=== PATIENT | female | born 1955 | race Caucasian/White ===

== ENCOUNTER 2023-03-17 09:33 | Outpatient (CLI) | payer MEDICARE, SELFPAY ==
--- NOTE | ~2023-03-17 | MR_ITS ---
MRI of the left knee Clinical history: Pain Technique: Coronal proton density and proton density-weighted images, sagittal proton-density and T2 fat-sat images, and axial proton-density fat-saturated images were acquired. Findings: Anterior and posterior cruciate ligaments are intact. Medial collateral ligament and the la teral collateral ligament complex are intact. Popliteus tendon is intact. There is complex tearing and maceration of the anterior horn of the medial meniscus, tear extending i nto the body segment. There is complex tearing and maceration of the anterior horn and body of medial meniscus. 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 There a re focal areas of grade IV chondromalacia of the lateral femoral condyle, with more extensive grade I V chondromalacia of the posterior half the lateral tibial plateau. There is extensive high-grade ronda dromalacia of the patellofemoral compartment, especially lateral patellar facet and patellar apex. Tr icompartmental osteophytes are present. Extensor mechanism is intact. Small to moderate joint effusion is present. Minimal Roa's cyst prese nt. Impression: Complex tearing of the anterior horn and body of the medial meniscus. Complex tearing of the anterior horn of the medial meniscus, probably extending to the body segment. Moderate to advanced tricompartmental osteoarthritis, as detailed above. Small to moderate joint effusion with minimal Roa's cyst. Reviewed, dictated and finalized at location . Impression: Complex tearing of the anterior horn and body of the medial meniscus. Complex tearing of the anterior horn of the medial meniscus, probably extending to the body segment. Moderate to advanced tricompartmental osteoarthritis, as detailed above. Small to moderate joint effusion with minimal Roa's cyst.
== END 2023-03-17 09:34 | disposition home or self-care (01) ==
LOC: CHSIMG 09:37
PROVIDERS: PCP Family Medicine; Visit Provider Family Medicine
DX: S89.92XA Unspecified injury of left lower leg, initial encounter (principal); S83.232A Complex tear of medial meniscus, current injury, left knee, initial encounter; M17.12 Unilateral primary osteoarthritis, left knee; M25.462 Effusion, left knee; M71.22 Synovial cyst of popliteal space [Baker], left knee
CPT/HCPCS: 73721

== ENCOUNTER 2023-03-30 09:10 | Outpatient (RCR) | payer MEDICARE, SELFPAY ==
--- NOTE | 2023-03-30 13:16 | OPREHPOC ---
Outpatient Therapy Plan of Care This is a Multidisciplinary Plan of Care that may contain components documented by all disciplines (PT, OT, and ST.) PT Problem 1 PT Problem #1 Knowledge Deficit PT Goal 1 Goal 1. Patient to demonstrate independence with HEP to improve progress made in PT. Target Visit 6 PT Problem 2 PT Problem #2 Impaired Strength PT Goal 1 Goal 1. Patient to improve L knee flexion/extension strength to 4/5 or more to improve ability to climb stairs. 2. Patient to improve L hip flexion strength to 4- /5 or greater to improve her ability to stand up from chair. Target Visit 12 PT Problem 3 PT Problem #3 Impaired Range of Motion PT Goal 1 Goal 1. 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 2. Patient to improve L knee active extension to lacking no more than 2 degrees to improve patient' s gait mechanics. 3. Patient to improve L hip active flexion to 75 degrees to improve ability to lift L leg onto couch. Target Visit 12 PT Problem 4 PT Problem #4 Impaired Gait PT Goal 1 Goal 1. Patient to walk 600 feet with LRAD during 6 minute walk test to improve ability to ambulate in grocery store. 2. Patient to walk with no limp to allow for better gait mechanics. Target Visit 12 PT Problem 5 PT Problem #5 Impaired Functional Mobil PT Goal 1 Goal 1. 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 2. Patient to perform sit to stand from standard chair with no increase in pain to improve ability to transfer in home. Target Visit 12
--- NOTE | 2023-03-30 13:16 | PTOPEVAL1 ---
Assessment and note entered by JT File, PT Evaluation Information Assessment Status Evaluation Diagnosis L knee OA, medial mensicus tear Onset 03/28/23 Subjective Information Patient reports she has had problems years ago in the L knee starting in 2009, since then it had gotten better until she hit it with with a truck door in November of 2022. She states in January while walking down the stairs to take her dog out, she felt a pop in the L knee. In February, she slipped in the shower which increased the knee pain further. She notes that she has been walking with a cane since January of this year once the pain has increased, stating this helps take pressure off the leg. She notes she visited the doctor, and was given pain medications to treat the pain. She had an x-ray and MRI a few weeks ago, showing a tear of the medial mensicus, OA, and joint effusion. Patient reports difficulty with moving sit to stand, climbing stairs, getting in/out car, and walking. She states that following an injection in the knee the pain has improved somewhat. Reported Pain Level Pain Score 3: Self Report Assessment PT Clinical Summary Mrs. Brunner is a 68 y/o female who presents to skilled PT to address OA in L knee. She presents with impairments in L LE strength, ROM, and flexibility. 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 Patient displays difficulty with walking, stair climbing, and transfer making it difficult to maintain her typically active lifestyle. Appropriate to continue skilled PT to address pain, ROM, strength , and gait deficits to improve patient's quality of life. Plan of Care Interventions Electrical Stimulation,Gait Training,Hot Pack/Cold Pack,Manual Therapy,Neuro Re-education,Patient/ Caregiver Educati,Therapeutic Activities, Therapeutic Exercise PT Services Indicated Yes Treatment Frequency and 3x/week for 12 visits Duration These treatments will address the objective and functional deficits as defined above. The patient will be advanced safely and appropriately in order for the patient to progress towards his/her prior level of function. Additional exercises will be introduced and as well as a comprehensive home exercise program upon discharge, if needed, ?to ensure carryover of functional gains achieved in the clinic. This treatmilagros
--- NOTE | 2023-04-24 07:58 | OPREHPOC ---
Outpatient Therapy Plan of Care This is a Multidisciplinary Plan of Care that may contain components documented by all disciplines (PT, OT, and ST.) PT Problem 1 PT Problem #1 Knowledge Deficit PT Goal 1 Goal 1. Patient to demonstrate independence with HEP to improve progress made in PT. Target Visit 6 PT Problem 2 PT Problem #2 Impaired Strength PT Goal 1 Goal 1. Patient to improve L knee flexion/extension strength to 4/5 or more to improve ability to climb stairs. 2. Patient to improve L hip flexion strength to 4- /5 or greater to improve her ability to stand up from chair. Target Visit 12 Comment continue PT Problem 3 PT Problem #3 Impaired Range of Motion PT Goal 1 Goal 1. Patient to achieve 100 degrees of active L knee flexion to increase ability to squat to floor to burr picker items. 2. Patient to improve L knee active extension to lacking no more than 2 degrees to improve patient' s gait mechanics. 3. Patient to improve L hip active flexion to 75 degrees to improve ability to lift L leg onto couch. Target Visit 12 Comment continue PT Problem 4 PT Problem #4 Impaired Gait PT Goal 1 Goal 1. Patient to walk 600 feet with LRAD during 6 minute walk test to improve ability to ambulate in grocery store. 2. Patient to walk with no limp to allow for better gait mechanics. Target Visit 12 Comment continue PT Problem 5 PT Problem #5 Impaired Functional Mobil PT Goal 1 Goal 1. 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 2. Patient to perform sit to stand from standard chair with no increase in pain to improve ability to transfer in home. Target Visit 12 Comment continue
== END 2023-04-23 19:00 | disposition still patient (30) ==
LOC: CHSPT 09:10
PROVIDERS: PCP Family Medicine; Visit Provider Orthopaedic Surgery
DX: M17.32 Unilateral post-traumatic osteoarthritis, left knee (principal)
CPT/HCPCS: 97014; 97016; 97110; 97140; 97150; 97161; G0283

== ENCOUNTER 2023-05-25 14:19 | Outpatient (RCR) | payer MEDICARE, SELFPAY ==
--- NOTE | 2023-05-25 15:52 | OPREHPOC ---
Outpatient Therapy Plan of Care This is a Multidisciplinary Plan of Care that may contain components documented by all disciplines (PT, OT, and ST.) PT Problem 1 PT Problem #1 Knowledge Deficit PT Goal 1 Goal 1. Patient to demonstrate independence with HEP to improve progress made in PT. Target Visit 6 PT Problem 2 PT Problem #2 Impaired Strength PT Goal 1 Goal 1. Patient to improve L knee flexion/extension strength to 4/5 or more to improve ability to climb stairs. 2. Patient to improve L hip flexion strength to 4- /5 or greater to improve her ability to stand up from chair. Target Visit 12 Comment . Comment continue PT Problem 3 PT Problem #3 Impaired Range of Motion PT Goal 1 Goal 1. Patient to achieve 100 degrees of active L knee flexion to increase ability to squat to floor to crop picker items. 2. Patient to improve L knee active extension to lacking no more than 2 degrees to improve patient' s gait mechanics. Target Visit 12 Comment . Comment continue PT Problem 4 PT Problem #4 Impaired Gait PT Goal 1 Goal 1. Patient to walk 600 feet with LRAD during 6 minute walk test to improve ability to ambulate in grocery store. 2. Patient to walk with no limp to allow for better gait mechanics. Target Visit 12 Comment . Comment continue PT Problem 5 PT Problem #5 Impaired Functional Mobil PT Goal 1 Goal 1. 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 2. Patient to perform sit to stand from standard chair with no increase in pain to improve ability to transfer in home. Target Visit 12 Comment . Comment continue
--- NOTE | 2023-05-25 15:52 | PTOPREEVAL ---
Assessment and note entered by Gail Sargent DPT Evaluation Information Assessment Status Evaluation Diagnosis L knee OA, medial mensicus tear Onset 03/28/23 Subjective Information Patient reports she underwent L TKA on 05/21/23. She reports she was discharged on 05/23/23. She reports she did do PT while in the hospital. She reports she has been having diffiulty sleeping, walking, ambulating and standing for house hold tasks. She reports she has had L calf pain and MD is aware but has not done a doppler. She reports she returns to the MD on 06/05/23. Reported Pain Level Pain Score 2: Self Report Pain Score 4: Self Report Assessment PT Clinical Summary Mrs. Brunner is a 68 year old female who presents to PT s/p L TKA. Patient demonstrates decreased L knee ROM, decreased L knee strength, and impaired gait limiting her ability to get into and out of the car, ambulate prolonged distances and complete house hold tasks. Patient would benefit from skilled PT to address impairments and return to PLOF. Plan of Care Interventions Therapeutic Exercise,Patient/Caregiver Educati, Manual Therapy,Neuro Re-education,Therapeutic Activities,Hot Pack/Cold Pack,Electrical Stimulation,Gait Training PT Services Indicated Yes Treatment Frequency and 3x weekly for 12 visits Duration These treatments will address the objective and functional deficits as defined above. The patient will be advanced safely and appropriately in order for the patient to progress towards his/her prior level of function. Additional exercises will be introduced and as well as a comprehensive home exercise program upon discharge, if needed, ?to ensure carryover of functional gains achieved in the clinic. This treatment plan has been reviewed and agreement upon by the patient.
--- NOTE | 2023-06-25 14:55 | OPREHPOC ---
Outpatient Therapy Plan of Care This is a Multidisciplinary Plan of Care that may contain components documented by all disciplines (PT, OT, and ST.) PT Problem 1 PT Problem #1 Knowledge Deficit PT Goal 1 Goal 1. Patient to demonstrate independence with HEP to improve progress made in PT. Target Visit 20 PT Problem 2 PT Problem #2 Impaired Strength PT Goal 1 Goal 1. Patient to improve L knee flexion/extension strength to 4/5 or more to improve ability to climb stairs. 2. Patient to improve L hip flexion strength to 4- /5 or greater to improve her ability to stand up from chair. Target Visit 20 Comment 1 met PT Problem 3 PT Problem #3 Impaired Range of Motion PT Goal 1 Goal 1. 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 2. Patient to improve L knee active extension to lacking no more than 2 degrees to improve patient' s gait mechanics. Target Visit 20 Comment upgraded PT Problem 4 PT Problem #4 Impaired Gait PT Goal 1 Goal 1. Patient to walk 800 feet with LRAD during 6 minute walk test to improve ability to ambulate in grocery store. 2. Patient to walk with no limp to allow for better gait mechanics. Target Visit 20 Comment continue, upgraded PT Problem 5 PT Problem #5 Impaired Functional Mobil PT Goal 1 Goal 1. 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 2. Patient to perform sit to stand from standard chair with no increase in pain to improve ability to transfer in home. Target Visit 20
--- NOTE | 2023-06-25 14:56 | PTOPREEVAL ---
Assessment and note entered by Gail Sargent DPT Evaluation Information Assessment Status Re-evaluation Diagnosis L knee OA, medial mensicus tear Onset 03/28/23 Subjective Information Patient reports she has been walking with a cane in the community and no AD at home. She reports she has been able to do stairs at home but would like to improve ability to step into bath tub. She reports shoulder continues to be stiff. Reported Pain Level Pain Score 2: Self Report Assessment PT Clinical Summary Mrs. Brunner has been seen for 12 visits since L TKA. She is progressing well with improved L knee ROM and strength. She has been able to ambulate with AD and has reported ability to navigate stairs. She continues to lack full ROM of the L knee. Goals have been upgraded to reflect positive progress. Patient would benefit from continued skilled PT to address remaining impairments and return to PLOF. Plan of Care Interventions Therapeutic Exercise,Patient/Caregiver Educati, Manual Therapy,Neuro Re-education,Therapeutic Activities,Hot Pack/Cold Pack,Electrical Stimulation,Gait Training PT Services Indicated Yes Treatment Frequency and continue 2x weekly for 8 visits Duration These treatments will address the objective and functional deficits as defined above. The patient will be advanced safely and appropriately in order for the patient to progress towards his/her prior level of function. Additional exercises will be introduced and as well as a comprehensive home exercise program upon discharge, if needed, ?to ensure carryover of functional gains achieved in the clinic. This treatment plan has been reviewed and agreement upon by the patient.
--- NOTE | 2023-07-25 14:50 | OPREHPOC ---
Outpatient Therapy Plan of Care This is a Multidisciplinary Plan of Care that may contain components documented by all disciplines (PT, OT, and ST.) PT Problem 1 PT Problem #1 Knowledge Deficit PT Goal 1 Goal 1. Patient to demonstrate independence with HEP to improve progress made in PT. Target Visit 28 PT Problem 2 PT Problem #2 Impaired Strength PT Goal 1 Goal 1. Patient to improve L knee flexion/extension strength to 4/5 or more to improve ability to climb stairs. 2. Patient to improve L hip flexion strength to 4- /5 or greater to improve her ability to stand up from chair. Target Visit 28 Progress Partially Met Comment 1 met PT Problem 3 PT Problem #3 Impaired Range of Motion PT Goal 1 Goal 1. 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 2. Patient to improve L knee active extension to lacking no more than 2 degrees to improve patient' s gait mechanics. Target Visit 28 Comment continue PT Problem 4 PT Problem #4 Impaired Gait PT Goal 1 Goal 1. Patient to walk 800 feet with LRAD during 6 minute walk test to improve ability to ambulate in grocery store. 2. Patient to walk with no limp to allow for better gait mechanics. Target Visit 28 Progress Partially Met Comment 1 met, continue PT Problem 5 PT Problem #5 Impaired Functional Mobil PT Goal 1 Goal 1. 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 2. Patient to perform sit to stand from standard chair with no increase in pain to improve ability to transfer in home. Target Visit 28 Progress Partially Met
--- NOTE | 2023-07-25 14:50 | PTOPREEVAL ---
Assessment and note entered by Gail Sargent DPT Evaluation Information Assessment Status Re-evaluation Diagnosis L knee OA, medial mensicus tear Onset 03/28/23 Subjective Information Patient reports she is feeling better. She reports she is still having difficulty bending the L knee . She reports she has been able to return to most daily activities but reports fatigue with stair navigation and ambulating prolonged distances. She reports she occasionally has difficulty getting into the car. Reported Pain Level Pain Score 3: Self Report Assessment PT Clinical Summary Mrs. Brunner has been seen for 20 visits of skilled PT since L TKA. Patient continues to make progress towards goals and has reported improved house hold function. She continue to lack full L knee flexion ROM limiting her ability to navigate stairs, ambulate prolonged distances and get into and out of the car. She would benefit from continued skilled PT to address remaining impairments and return to PLOF. Plan of Care Interventions Therapeutic Exercise,Patient/Caregiver Educati, Manual Therapy,Neuro Re-education,Therapeutic Activities,Hot Pack/Cold Pack,Electrical Stimulation,Gait Training PT Services Indicated Yes Treatment Frequency and continue 2x weekly for 8 visits Duration These treatments will address the objective and functional deficits as defined above. The patient will be advanced safely and appropriately in order for the patient to progress towards his/her prior level of function. Additional exercises will be introduced and as well as a comprehensive home exercise program upon discharge, if needed, ?to ensure carryover of functional gains achieved in the clinic. This treatment plan has been reviewed and agreement upon by the patient.
--- NOTE | 2023-08-22 14:37 | OPREHPOC ---
Outpatient Therapy Plan of Care This is a Multidisciplinary Plan of Care that may contain components documented by all disciplines (PT, OT, and ST.) PT Problem 1 PT Problem #1 Knowledge Deficit PT Goal 1 Goal 1. Patient to demonstrate independence with HEP to improve progress made in PT. Target Visit 28 Progress Met PT Problem 2 PT Problem #2 Impaired Strength PT Goal 1 Goal 1. Patient to improve L knee flexion/extension strength to 4/5 or more to improve ability to climb stairs. 2. Patient to improve L hip flexion strength to 4- /5 or greater to improve her ability to stand up from chair. Target Visit 28 Progress Met Comment . PT Problem 3 PT Problem #3 Impaired Range of Motion PT Goal 1 Goal 1. Patient to achieve 120 degrees of active L knee flexion to increase ability to squat to floor to leaf size picker items. 2. Patient to improve L knee active extension to lacking no more than 2 degrees to improve patient' s gait mechanics. Target Visit 28 Progress Not Met Comment . PT Problem 4 PT Problem #4 Impaired Gait PT Goal 1 Goal 1. Patient to walk 800 feet with LRAD during 6 minute walk test to improve ability to ambulate in grocery store. met 2. Patient to walk with no limp to allow for better gait mechanics. met Target Visit 28 Progress Met Comment . PT Problem 5 PT Problem #5 Impaired Functional Mobil PT Goal 1 Goal 1. 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 2. Patient to perform sit to stand from standard chair with no increase in pain to improve ability to transfer in home. Target Visit 28 Progress Met
--- NOTE | 2023-08-22 14:39 | PTOPDC ---
Assessment and note entered by JT File, PT Evaluation Information Assessment Status Discharge Diagnosis L knee OA, medial mensicus tear Onset 03/28/23 Subjective Information patient reports she feels good today. she reports it has really gotten better in the last week. she reports the surgeon has released her from follow-ups for the knee. she reports she is ready to DC therapy. Reported Pain Level Pain Score 0: Self Report Assessment PT Clinical Summary mrs. snell presents to skilled PT with no pain in the L knee. she has met all goals for skilled PT this date, except for L knee active rom. she is ambulating without any AD, and traverses stairs with reciprocal pattern. she will be DC'd from skilled PT today, and will continue HEP independent at home. Plan of Care PT Services Indicated Yes
== END 2023-08-22 15:21 | disposition home or self-care (01) ==
LOC: CHSPT 14:19
PROVIDERS: PCP Family Medicine; Visit Provider Orthopaedic Surgery
DX: M17.32 Unilateral post-traumatic osteoarthritis, left knee (principal)
CPT/HCPCS: 97014; 97016; 97110; 97112; 97140; 97150; 97164; 97530; G0283

== ENCOUNTER 2024-09-10 14:21 | Outpatient (RCR) | payer MEDICARE, SELFPAY ==
--- NOTE | 2024-09-10 15:40 | OPREHPOC ---
Outpatient Therapy Plan of Care This is a Multidisciplinary Plan of Care that may contain components documented by all disciplines (PT, OT, and ST.) PT Problem 1 PT Problem #1 Knowledge Deficit PT Goal 1 Goal / Goal Update 1. independent and compliant with HEP Target Visit 6 PT Problem 2 PT Problem #2 Pain PT Goal 1 Goal / Goal Update 1. decrease pain at worst to 3/10 or less in the lower back 2. patient to report no radicular symptoms past the R hip. Target Visit 12 PT Problem 3 PT Problem #3 Impaired Strength PT Goal 1 Goal / Goal Update 1. patient to display 3+/5 or better R hip flex 2. patient to display 4/5 or better R knee strength 3. 4/5 or better R ankle DF Target Visit 12 PT Problem 4 PT Problem #4 Impaired Functional Mobility PT Goal 1 Goal / Goal Update 1. patient to ambulate with normal gait mechanics and no AD 2. patient to ambulate up and down steps with reciprocal mechanics with 1 hand rail hold or less 3. oswestry to display 30% or less functional deficits 4. patient to tolerate standing for 1 hour or more at home to complete home care Target Visit 12
--- NOTE | 2024-09-10 15:40 | PTOPEVAL1 ---
Assessment and note entered by JT File, PT Evaluation Information Assessment Status Evaluation ICD-10 Condition Codes (PT) Pain in low back M54.50,Radiculopathy, lumbar region M54.16 Onset 07/30/24 Subjective Information patient reports her R leg went out from underneath her 3 times and she fell. she reports she had an MRI of the lower back that shows disc problems. she reports she also has pain from the top of the back, into the groin area, then down the front of the thigh to the knee and ankle. she reports she has increased symptoms with walking. she reports she has to walk around her house a lot due to her being in poor health at this time too. she reports she has had a few bouts of burning down the legs where she has had to physically pour water on her legs to get the pain to subside. she reports she has been having symptoms since some time in july. Reported Pain Level Pain Score 5: Self Report Assessment PT Clinical Summary mrs. snell is a 69 yo woman who presents to skilled PT services for evaluation and treatment of lower back pain and lumbar radiculopathy. she presents today with decreased rom, poor gait mechanics, decreased core stability, decreased LE strength, and pain. she displays signs and symptoms consistent with an acute discoid type injury. continued skilled PT is indicated to improve her objective/functional deficits and return to her prior level functional activity performance and quality of life. Plan of Care Interventions Electrical Stimulation,Gait Training,Hot Pack/Cold Pack,Manual Therapy,Mechanical Traction,Neuro Re- education,Patient/Caregiver Education,Therapeutic Activities,Therapeutic Exercise PT Services Indicated Yes Treatment Frequency and 3x weekly for 12 visits Duration These treatments will address the objective and functional deficits as defined above. The patient will be advanced safely and appropriately in order for the patient to progress towards his/her prior level of function. Additional exercises will be introduced and as well as a comprehensive home exercise program upon discharge, if needed, ?to ensure carryover of functional gains achieved in the clinic. This treatment plan has been reviewed and agreement upon by the patient.
--- NOTE | 2024-10-02 14:09 | OPREHPOC ---
Outpatient Therapy Plan of Care This is a Multidisciplinary Plan of Care that may contain components documented by all disciplines (PT, OT, and ST.) PT Problem 1 PT Problem #1 Knowledge Deficit PT Goal 1 Goal / Goal Update 1. independent and compliant with HEP Target Visit 6 Progress Met PT Goal 2 Goal / Goal Update continue to progress PT Problem 2 PT Problem #2 Pain PT Goal 1 Goal / Goal Update 1. decrease pain at worst to 3/10 or less in the lower back -progress 2. patient to report no radicular symptoms past the R hip. -progress Target Visit 12 Progress Partially Met PT Goal 2 Goal / Goal Update continue PT Problem 3 PT Problem #3 Impaired Strength PT Goal 1 Goal / Goal Update 1. patient to display 3+/5 or better R hip flex 2. patient to display 4/5 or better R knee strength 3. 4/5 or better R ankle DF Target Visit 12 Progress Not Met PT Goal 2 Goal / Goal Update continue PT Problem 4 PT Problem #4 Impaired Functional Mobility PT Goal 1 Goal / Goal Update 1. patient to ambulate with normal gait mechanics and no AD -not met 2. patient to ambulate up and down steps with reciprocal mechanics with 1 hand rail hold or less -not met 3. oswestry to display 30% or less functional deficits -not met 4. patient to tolerate standing for 1 hour or more at home to complete home care -met Target Visit 12 Progress Partially Met PT Goal 2 Goal / Goal Update continue
--- NOTE | 2024-10-02 14:09 | PTOPPROG ---
Assessment and note entered by Xenia Asher, PT Evaluation Information Assessment Status Progress ICD-10 Condition Codes (PT) Pain in low back M54.50,Radiculopathy, lumbar region M54.16 Onset 07/30/24 Subjective Information Julia Brunner reports she has constant pain in her right leg except the days she has had traction in PT. She gets relief of pain for 6-8 hours after PT session. She reports pain only goes to the right knee now and does not go to the ankle like it did previously. She is noting that she can move her right leg a little better but she is still having difficulty moving her right leg. She was able to lift her leg enough to get into the shower yesterday but she still struggles with getting into higher vehicles. She did have a fall about a month ago when her right leg didn't move and she fell backward. She also fell approximately 2 weeks ago when she tried to lift her right leg into her daughter's suburban SUV. She fell out of the car that time. She is able to stand long enough to cook and wash dishes again. She has been transferred to a new primary doctor and has not been referred to a specialist. Assessment PT Clinical Summary Julia Brunner has completed 10 skilled PT visits for low back pain and radiculopathy. She is reporting less pain in her leg and back after receiving traction during PT and she notes she is able to lift her right leg a little better and she is able to stand long enough to cook and wash dishes now. She demonstrates mild progress with right LE strength and core strength. She continues to have weakness and decreased mobility however, her symptoms are centralizing and she will continue to benefit from skilled PT. Plan of Care Interventions Electrical Stimulation,Hot Pack/Cold Pack,Manual Therapy,Mechanical Traction,Neuro Re-education, Patient/Caregiver Education,Therapeutic Activities ,Therapeutic Exercise PT Services Indicated Yes Treatment Frequency and Continue per POC for 2 additional visits. Duration These treatments will address the objective and functional deficits as defined above. The patient will be advanced safely and appropriately in order for the patient to progress towards his/her prior level of function. Additional exercises will be introduced and as well as a comprehensive home exercise program upon discharge, if needed, ?to ensure carryover of functional gains achieved in the clinic. This treatment plan has been reviewed and agreement upon by the patient.
--- NOTE | 2024-10-10 11:34 | OPREHPOC ---
Outpatient Therapy Plan of Care This is a Multidisciplinary Plan of Care that may contain components documented by all disciplines (PT, OT, and ST.) PT Problem 1 PT Problem #1 Knowledge Deficit PT Goal 1 Goal / Goal Update 1. independent and compliant with HEP Target Visit 6 Progress Met PT Goal 2 Goal / Goal Update continue to progress PT Problem 2 PT Problem #2 Pain PT Goal 1 Goal / Goal Update 1. decrease pain at worst to 3/10 or less in the lower back -progress 2. patient to report no radicular symptoms past the R hip. -progress Target Visit 18 Progress Not Met PT Goal 2 Goal / Goal Update . PT Problem 3 PT Problem #3 Impaired Strength PT Goal 1 Goal / Goal Update 1. patient to display 3+/5 or better R hip flex. met 2. patient to display 4/5 or better R knee strength 3. 4/5 or better R ankle DF. met Target Visit 18 Progress Partially Met PT Goal 2 Goal / Goal Update . PT Problem 4 PT Problem #4 Impaired Functional Mobility PT Goal 1 Goal / Goal Update 1. patient to ambulate with normal gait mechanics and no AD -not met 2. patient to ambulate up and down steps with reciprocal mechanics with 1 hand rail hold or less -not met 3. oswestry to display 30% or less functional deficits -not met 4. patient to tolerate standing for 1 hour or more at home to complete home care -not met Target Visit 18 Progress Not Met PT Goal 2 Goal / Goal Update .
--- NOTE | 2024-10-10 11:34 | PTOPREEVAL ---
Assessment and note entered by JT File, PT Evaluation Information Assessment Status Re-evaluation ICD-10 Condition Codes (PT) Pain in low back M54.50,Radiculopathy, lumbar region M54.16 Onset 07/30/24 Subjective Information patient reports she feels Better overall. she report the pain has gravitated up the leg some and does not go as far down. she reports her pain in the legs now feels more like mm soreness also. she reports she did take a Vicodin today. patient reports she wants to try so bad to not use her walker or cane, but still has steps taken where she doesn't trust herself. she reports she would like to get better at walking and try to get back to walking without any AD. she reports the traction has helped make her feel much better. she reports she gets 6-8 hours of no pain after mechanical traction. she reports when she first started PT, she was unable to lift the R LE up over the tub wall at home, but she is able to do it now. she also reports she is able to lift the R LE up into bed without help now. Reported Pain Level Pain Score 1,2: Self Report Assessment PT Clinical Summary mrs. snell presents to skilled PT for her 12th skilled therapy visit. she reports less radicular symptoms, less pain, and improve function at home. although she is making good progress thus far, she continues to display objective/functional deficits and lack of achievement of all goals for skilled PT. continued skilled PT is indicated to further improve her objective/functional performance, achieve all remaining goals, and return to her prior level functional activity performance/quality of life. Plan of Care Interventions Electrical Stimulation,Hot Pack/Cold Pack,Manual Therapy,Mechanical Traction,Neuro Re-education, Patient/Caregiver Education,Therapeutic Activities ,Therapeutic Exercise PT Services Indicated Yes Treatment Frequency and continue skilled PT 2x weekly for 6 more visits Duration These treatments will address the objective and functional deficits as defined above. The patient will be advanced safely and appropriately in order for the patient to progress towards his/her prior level of function. Additional exercises will be introduced and as well as a comprehensive home exercise program upon discharge, if needed, ?to ensure carryover of functional gains achieved in the clinic. This treatment plan has been reviewed and agreement upon by the patient.
--- NOTE | 2024-12-02 13:14 | PTOPREEVAL ---
Assessment and note entered by Gail Cruz DPT Evaluation Information Assessment Status Re-evaluation ICD-10 Condition Codes (PT) Pain in low back M54.50,Radiculopathy, lumbar region M54.16 Onset 07/30/24 Subjective Information Patient returns to treatment today follow absence due to her passing away. She reports since she was here last her pain has started to radiate farther down her leg again. She reports when she was consistently coming to PT and doing her HEP her radiating pain had stopped at the thigh. Reported Pain Level Pain Score 4,4: Self Report Assessment PT Clinical Summary Ms. Brunner returns to PT following prolonged absence. She has had return of radiating symptoms. Prior to break from PT she had decreased radiating pain and improved mobility. Currently patient is also having difficulty getting up out of chair. She would benefit from continued skilled PT to address impairments and return to PLOF. Plan of Care Interventions Electrical Stimulation,Hot Pack/Cold Pack,Manual Therapy,Mechanical Traction,Neuro Re-education, Patient/Caregiver Education,Therapeutic Activities ,Therapeutic Exercise PT Services Indicated Yes Treatment Frequency and continue skilled PT 2x weekly for 10 visits Duration These treatments will address the objective and functional deficits as defined above. The patient will be advanced safely and appropriately in order for the patient to progress towards his/her prior level of function. Additional exercises will be introduced and as well as a comprehensive home exercise program upon discharge, if needed, ?to ensure carryover of functional gains achieved in the clinic. This treatment plan has been reviewed and agreement upon by the patient.
== END 2024-12-09 23:59 | disposition home or self-care (01) ==
LOC: CHSPT 14:21
PROVIDERS: Visit Provider Family Medicine
DX: M54.16 Radiculopathy, lumbar region (principal)
CPT/HCPCS: 97012; 97014; 97110; 97112; 97140; 97150; 97161; 97530; G0283

== ENCOUNTER 2024-12-12 09:53 | Outpatient (RCR) | payer MEDICARE, SELFPAY ==
--- NOTE | 2025-01-09 13:42 | OPREHPOC ---
Outpatient Therapy Plan of Care This is a Multidisciplinary Plan of Care that may contain components documented by all disciplines (PT, OT, and ST.) PT Problem 1 PT Problem #1 Knowledge Deficit PT Goal 1 Goal / Goal Update 1. independent and compliant with HEP Target Visit 6 Progress Met PT Goal 2 Goal / Goal Update continue to progress PT Problem 2 PT Problem #2 Pain PT Goal 1 Goal / Goal Update 1. decrease pain at worst to 3/10 or less in the lower back -progress 2. patient to report no radicular symptoms past the R hip. -progress Target Visit 18 Progress Not Met PT Goal 2 Goal / Goal Update . PT Problem 3 PT Problem #3 Impaired Strength PT Goal 1 Goal / Goal Update 1. patient to display 3+/5 or better R hip flex. met 2. patient to display 4/5 or better R knee strength met 3. 4/5 or better R ankle DF. met Target Visit 18 Progress Partially Met PT Goal 2 Goal / Goal Update Pt to display 4/5 or better R hip flexion. Target Visit 34 PT Problem 4 PT Problem #4 Impaired Functional Mobility PT Goal 1 Goal / Goal Update 1. patient to ambulate with normal gait mechanics and no AD -not met 2. patient to ambulate up and down steps with reciprocal mechanics with 1 hand rail hold or less -not met 3. oswestry to display 30% or less functional deficits -not met 4. patient to tolerate standing for 1 hour or more at home to complete home care -progress Target Visit 18 Progress Not Met PT Goal 2 Goal / Goal Update .
--- NOTE | 2025-01-09 13:43 | PTOPPROG ---
Assessment and note entered by Leslie Guillen, PT Evaluation Information Assessment Status Progress ICD-10 Condition Codes (PT) Pain in low back M54.50,Radiculopathy, lumbar region M54.16 Onset 07/30/24 Subjective Information Pt reports feeling improved but that she still has a way to go. States her pain has been lower recently as she's been taking vicodin before her PT visits. She does still have pain and is fearful of falling but she's able to lift and move her leg more compared to when she started PT and she feels like she's walking a lot better. Her radicular symptoms are no longer going down into the foot or calf and they now sit more in her R knee. Assessment PT Clinical Summary Mrs. Brunner has attended 24 skilled PT sessions for low back pain with radicular symptoms. Since starting therapy and since her last progress visit she has continued to make progress in her LE strength. Her bilateral ankle and knee strength are satisfactory but she still demonstrates R hip weakness that impairs her ability to get out of a chair and ambulate. She will benefit from continued skilled PT intervention to further progress toward goals to improve strength, functional mobility and reduce fall risk. Plan of Care Interventions Electrical Stimulation,Hot Pack/Cold Pack,Manual Therapy,Mechanical Traction,Neuro Re-education, Patient/Caregiver Education,Therapeutic Activities ,Therapeutic Exercise PT Services Indicated Yes Treatment Frequency and 2x/week for 10 additional visits Duration These treatments will address the objective and functional deficits as defined above. The patient will be advanced safely and appropriately in order for the patient to progress towards his/her prior level of function. Additional exercises will be introduced and as well as a comprehensive home exercise program upon discharge, if needed, ?to ensure carryover of functional gains achieved in the clinic. This treatment plan has been reviewed and agreement upon by the patient.
--- NOTE | 2025-02-12 10:30 | OPREHPOC ---
Outpatient Therapy Plan of Care This is a Multidisciplinary Plan of Care that may contain components documented by all disciplines (PT, OT, and ST.) PT Problem 1 PT Problem #1 Knowledge Deficit PT Goal 1 Goal / Goal Update 1. independent and compliant with HEP Target Visit 6 Progress Met PT Goal 2 Goal / Goal Update continue to progress Progress Met PT Problem 2 PT Problem #2 Pain PT Goal 1 Goal / Goal Update 1. decrease pain at worst to 3/10 or less in the lower back -progress 2. patient to report no radicular symptoms past the R hip. -met Target Visit 18 Progress Partially Met PT Goal 2 Goal / Goal Update . PT Problem 3 PT Problem #3 Impaired Strength PT Goal 1 Goal / Goal Update 1. patient to display 3+/5 or better R hip flex. met 2. patient to display 4/5 or better R knee strength -met 3. 4/5 or better R ankle DF. met Target Visit 18 Progress Met PT Goal 2 Goal / Goal Update Pt to display 4/5 or better R hip flexion. Target Visit 34 Progress Met PT Problem 4 PT Problem #4 Impaired Functional Mobility PT Goal 1 Goal / Goal Update 1. patient to ambulate with normal gait mechanics and no AD -met, pt displays good gait mechanics using straight cane and she does not plan to stop using the cane. 2. patient to ambulate up and down steps with reciprocal mechanics with 1 hand rail hold or less -not met 3. oswestry to display 30% or less functional deficits -not met 4. patient to tolerate standing for 1 hour or more at home to complete home care -progress Target Visit 18 Progress Partially Met PT Goal 2 Goal / Goal Update .
--- NOTE | 2025-02-12 10:30 | PTOPPROG ---
Assessment and note entered by Leslie Guillen, PT Evaluation Information Assessment Status Progress ICD-10 Condition Codes (PT) Pain in low back M54.50,Radiculopathy, lumbar region M54.16 Onset 07/30/24 Subjective Information Ashley reports continued progress with PT but she still gets very weak with standing and and continues to have difficulty climbing stairs. She reports she's able to stand for 15 minutes before needing to rest due to pain. She reports that she hasn't felt any pain down the leg past her hip recently. She continues to walk with her cane and reports she doesn't feel comfortable walking without it. She does note a dizziness spell the other day that caused her to run into the doorframe into her living room, and states she would've fall if the chair wasn't there to catch her. Assessment PT Clinical Summary Mrs. Brunner presents for her 34th skilled PT visit today. She has made slow but positive progress since starting physical therapy. She has met her goals addressing lower extremity weakness although she does still demonstrate mild to moderate strength deficits that contribute to her difficulty with getting out of a chair, walking, and climbing stairs. She demonstrates good gait characteristics when ambulating with a cane and at this time it is recommended pt continue use of cane for safety due to fall risk and fear of falling. Pt will benefit from continued skilled PT intervention to make further progress in strength and functional mobility but she will transition to 1x/week this date. Plan of Care Interventions Electrical Stimulation,Hot Pack/Cold Pack,Manual Therapy,Mechanical Traction,Neuro Re-education, Patient/Caregiver Education,Therapeutic Activities ,Therapeutic Exercise PT Services Indicated Yes Treatment Frequency and 1x/week for 6 additional visits Duration These treatments will address the objective and functional deficits as defined above. The patient will be advanced safely and appropriately in order for the patient to progress towards his/her prior level of function. Additional exercises will be introduced and as well as a comprehensive home exercise program upon discharge, if needed, ?to ensure carryover of functional gains achieved in the clinic. This treatment plan has been reviewed and agreement upon by the patient.
--- NOTE | 2025-02-16 10:31 | PCPTNOTE ---
Cancelled session. Reports she is not feeling well.
== END 2025-03-05 20:00 | disposition still patient (30) ==
LOC: CHSPT 09:53
PROVIDERS: Visit Provider Family Medicine
DX: M54.16 Radiculopathy, lumbar region (principal); M54.10 Radiculopathy, site unspecified
CPT/HCPCS: 97012; 97014; 97110; 97112; 97140; 97150; 97530; G0283

== ENCOUNTER 2025-03-13 10:27 | Outpatient (RCR) | payer MEDICARE, SELFPAY ==
--- NOTE | 2025-03-27 13:18 | OPREHPOC ---
Outpatient Therapy Plan of Care This is a Multidisciplinary Plan of Care that may contain components documented by all disciplines (PT, OT, and ST.) PT Problem 1 PT Problem #1 Knowledge Deficit PT Goal 1 Goal / Goal Update 1. independent and compliant with HEP Target Visit 6 Progress Met PT Goal 2 Goal / Goal Update continue to progress Progress Met PT Problem 2 PT Problem #2 Pain PT Goal 1 Goal / Goal Update 1. decrease pain at worst to 3/10 or less in the lower back -met 2. patient to report no radicular symptoms past the R hip. -met Target Visit 18 Progress Met PT Goal 2 Goal / Goal Update . PT Problem 3 PT Problem #3 Impaired Strength PT Goal 1 Goal / Goal Update 1. patient to display 3+/5 or better R hip flex. met 2. patient to display 4/5 or better R knee strength -met 3. 4/5 or better R ankle DF. met Target Visit 18 Progress Met PT Goal 2 Goal / Goal Update Pt to display 4/5 or better R hip flexion. Target Visit 34 Progress Met PT Problem 4 PT Problem #4 Impaired Functional Mobility PT Goal 1 Goal / Goal Update 1. patient to ambulate with normal gait mechanics and no AD -met, pt displays good gait mechanics using straight cane and she does not plan to stop using the cane. 2. patient to ambulate up and down steps with reciprocal mechanics with 1 hand rail hold or less -not met 3. oswestry to display 30% or less functional deficits -not met 4. patient to tolerate standing for 1 hour or more at home to complete home care -progress Target Visit 18 Progress Partially Met PT Goal 2 Goal / Goal Update .
--- NOTE | 2025-03-27 13:18 | PTOPDC ---
Assessment and note entered by Leslie Guillen, PT Evaluation Information Assessment Status Discharge ICD-10 Condition Codes (PT) Pain in low back M54.50,Radiculopathy, lumbar region M54.16 Onset 07/30/24 Subjective Information Ashley reports she got a heart monitor and has to wear it for a month and track her symptoms. She reports she's also been having issues with her blood pressure and that her doctor increased her dosage of losartan. Overall she feels like she's gotten better with therapy but she has been feeling a lot more fatigued with all activities. She is happy with her progress in PT and feels like she can continue doing her exercises at home on her own while she monitors her vitals. She reports she no longer has radicular symptoms down her leg and currently denies pain but that she has been taking pain meds so she isn't sure how high her pain really gets. Reported Pain Level Pain Score 0: Self Report Pain Score 0: Self Report Assessment PT Clinical Summary Mrs. Brunner has attended 40 skilled PT visits for low back pain and radicular symptoms down the R leg. Since beginning therapy she no longer has radicular symptoms down the R leg, demonstrates improvements in LE strength and functional independence, and is able to manage her pain with exercise and occasional use of pain medication per her doctor. She has met or partially met all goals addressing these deficits and she will be discharged from skilled PT this date to continue independent HEP while monitoring her vitals due to recent abnormal values. Plan of Care PT Services Indicated No
== END 2025-03-27 14:45 | disposition home or self-care (01) ==
LOC: CHSPT 10:27
PROVIDERS: Visit Provider Family Medicine
DX: M54.16 Radiculopathy, lumbar region (principal); M54.10 Radiculopathy, site unspecified
CPT/HCPCS: 97110; 97112; 97530